=== PATIENT | female | born 1970 | race Caucasian/White ===

== ENCOUNTER 2017-02-16 22:42 | Emergency (ER) | payer OTHER ==
--- NOTE | 2017-02-16 23:35 | PDOC ---
History of Present Illness - General Chief Complaint: Respiratory Stated Complaint: SOB Time Seen by Provider: 02/16/17 23:07 - History of Present Illness Initial Comments: This 47-year-old woman with history of pulmonary embolus after knee surgery no other significant past medical history presents with 2 day history of shortness of breath. The patient states that yesterday, she first had sensation that she could not get a full breath, needing to inhale 2-3 times. She feels a sense of tightness in the upper anterior chest. She has no pain; she denies cough/ wheezing/fever. She has no history of recent upper respiratory infection symptoms. She denies recent travel or immobility; no recent surgery. She has never smoked and denies use of estrogen supplementation. She has not had any recent lower extremity pain or swelling. Patient has a long history of GERD for which she takes Pepcid 20 mg twice a day Past History - Past Medical History Allergies/Adverse Reactions: Allergies Allergy/AdvReac Type Severity Reaction Status Date / Time No Known Allergies Allergy Verified 01/18/12 16:08 Home Medications: Ambulatory Orders Cholecalciferol (Vitamin D3) [Vitamin D] 1,000 unit PO DAILY 07/22/13 Fish Oil/Dha/Epa [Fish Oil 1,200 mg Fish Oil] 1 cap PO DAILY 07/22/13 Iron 1 tab PO HS 07/22/13 Lactobacillus Acidophilus [Acidophilus] 1 tab PO DAILY 07/22/13 Multivitamin [Multivitamins] 1 each PO DAILY 07/22/13 Omeprazole [Prilosec (RX)] 20 mg PO DAILY #0 07/22/13 Famotidine [Pepcid -] 20 mg PO DAILY 12/22/13 Anemia: No Asthma: No Cancer: No Cardiac Disorders: Yes (S/P PULMONARY EMBOLUS, AFTER RIGHT KNEE SURGERY) CVA: No COPD: No CHF: No Dementia: No Diabetes: No GI Disorders: Yes (ACID REFLUX) Disorders: Yes (UTI'S) HTN: No Hypercholesterolemia: No Kidney Stones: Yes Liver Disease: No Seizures: No Thyroid Disease: No - Surgical History Abdominal Surgery: No Appendectomy: No Cardiac Surgery: No Cholecystectomy: No Lung Surgery: No Neurologic Surgery: No Orthopedic Surgery: Yes (REPAIR OF A TORN MENISCUS) - Psycho/Social/Smoking Cessation Hx Anxiety: No Suicidal Ideation: No Smoking Status: No Smoking History: Never smoked Have you smoked in the past 12 months: No Number of Cigarettes Smoked Daily: 0 Hx Alcohol Use: No Drug/Substance Use Hx: No Substance Use Type: None Hx Substance Use Treatment: No Review of Systems - Review of Systems Able to Perform ROS?: Yes Comments:: 12 point review of systems is negative except for what is noted in the history of present illness *Physical Exam - Physical Exam Comments: GENERAL: Adult female, speaking in full sentences in no acute respiratory distress; heart rate 94/minute, respiratory rate 20/minute, pulse ox 99% HEAD: Normal with no signs of trauma. EYES: PERRLA, EOMI, sclera anicteric, conjunctiva clear. ENT: Ears normal, nares patent, oropharynx clear without exudates. Dry mucous membranes. NECK: Normal range of motion, supple without lymphadenopathy, JVD, or masses. LUNGS: Breath sounds equal, clear to auscultation bilaterally. No wheezes, and no crackles. HEART:Regular rate and rhythm, normal S1 and S2 without murmur, rub or gallop. ABDOMEN:.normal bowel sounds No guarding,tenderness or rebound.No masses No distention. EXTREMITIES: Normal range of motion, no edema. No clubbing or cyanosis. No erythema, or tenderness. NEUROLOGICAL: Cranial nerves II through XII grossly intact. Normal speech. No focal neurological deficits. MUSCULOSKELETAL: Back non-tender to palpation, no CVA tenderness SKIN: Warm, Dry, normal turgor, no rashes or lesions noted. 12-lead electrocardiogram reveals normal sinus rhythm at 87 bpm; wave forms, axis and intervals are all normal. No evidence of acute ST or T-wave abnormalities. ED Treatment Course - LABORATORY CBC & Chemistry Diagram: 02/17/17 00:05 02/17/17 00:05 Progress Note - Progress Note Progress Note: Because this patient has a true risk factor for pulmonary embolism in her previous history of thromboembolic disease and is also mildly tachycardic (near 100/minute, laboratory evaluation including d-dimer was sent. Laboratory evaluation was essentially unremarkable except for d-dimer of 275 CT angiogram of the chest performed. This showed no large central pulmonary embolism. There is a small hiatal hernia was mild lower esophageal reflux esophagitis. No other acute pulmonary process was identified. There was left lobe of the liver hypodense cystic process Results discussed with the patient. She will be discharged with instructions to continue her Pepcid as previously prescribed by her PMD for her GERD. 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 She should return to the emergency room if she has severe shortness of breath/ persistent chest pain *DC/Admit/Observation/Transfer Diagnosis at time of Disposition: Dyspnea Qualifiers: Dyspnea type: unspecified Qualified Code(s): R06.00 - Dyspnea, unspecified - Discharge Dispostion Disposition: HOME Condition at time of disposition: Stable - Patient Instructions Printed Discharge Instructions: DI for Shortness of Breath Additional Instructions: Avoid strenuous activity for the next few days Drink plenty of water Continue Pepcid as prescribed Return to ER if you have worsening shortness of breath or develop persistent chest pain Follow-up with your general doctor within the next 5-7 days
[2017-02-16 23:46] VITALS: BP 118/74; TEMP 98.7; BMI 35.5
[2017-02-17 00:57] LABS: BASOPHIL 0.6 % (0-2.0); EOSINOPHIL 2.4 % (0-4.5); MCHC 33.6 g/dl (32.0-36.0); MEAN CELL VOLUME 89.4 fl (80-96); MEAN PLT VOLUME 9.6 fl (7.5-11.1); NEUTROPHILS 66.8 % (42.8-82.8); PLATELET COUNT 208 K/MM3 (134-434); RDW 14.4 % (11.6-15.6)
[2017-02-17 01:13] LABS: INR 0.98 (0.82-1.09); PROTHROMBIN TIME (PATIENT) 10.8 SEC (9.98-11.88)
[2017-02-17 01:25] LABS: ALBUMIN 3.9 g/dl (3.4-5.0); ALK PHOS 81 U/L (45-117); ANION GAP 9 (8-16); BILIRUBIN,TOTAL 0.2 mg/dL (0.2-1.0); CALCIUM 8.8 mg/dL (8.5-10.1); CO2 26 mmol/L (21-32); CREATININE 0.9 mg/dL (0.55-1.02); GLUCOSE,RANDOM 141 mg/dL (74-106); SGOT/AST 10 U/L (15-37); SGPT/ALT 22 U/L (12-78); TOT PROT 6.7 g/dl (6.4-8.2)
[2017-02-17] MEDS ORDERED: SODIUM CHLORIDE 1,000 ML IV STA (01:42)
[2017-02-17 01:45] VITALS: PULSE 96
--- NOTE | 2017-02-20 10:34 | EKG ---
Test Reason : Blood Pressure : / mmHG Vent. Rate : 087 BPM Atrial Rate : 087 BPM P-R Int : 142 ms QRS Dur : 090 ms QT Int : 370 ms P-R-T Axes : 051 022 035 degrees QTc Int : 445 ms NORMAL SINUS RHYTHM NO PREVIOUS ECGS AVAILABLE Confirmed by MD KANIKA, AIDE ([id number]) on 02/20/2017 10:34:10 AM Referred By: MD CHANG Confirmed By:AIDE BOUDREAUX MD
== END 2017-02-17 04:55 | disposition home or self-care (01) ==
LOC: FER 22:42
PROC: 3E0F7GC Introduction of Other Therapeutic Substance into Respiratory Tract, Via Natural or Artificial Opening (ICD-10-PCS; principal; 2017-02-16)
DX: R06.00 Dyspnea, unspecified (principal); K21.9 Gastro-esophageal reflux disease without esophagitis; Z86.711 Personal history of pulmonary embolism; Z87.440 Personal history of urinary (tract) infections
CPT/HCPCS: 36415; 71275-TC; 80053; 84703; 85025; 85379; 85610; 93005; 99282-25